=== PATIENT | male | born 1985 | race Caucasian/White ===

== ENCOUNTER 2019-11-05 18:02 | Emergency (ER) | payer SELFPAY ==
[2019-11-05 18:03] VITALS: BP 119/93; PULSE 86; RESP 14; TEMP 36.8; O2SAT 98; BMI 29.8
--- NOTE | 2019-11-05 18:25 | ED.DCSUM_ITS ---
History of Present Illness Chief Complaint: Lower Extremity Injury Informant: Patient Onset: Weeks - 3 Context: Gradual Onset Timing: Continuous Quality of Pain: - - tight/swollen Location: anterior left knee Current Severity: Moderate Maximum Severity: Moderate Worsened by: kneeling Relieved by: draining it at home Associated Symptoms: Negative for: Parasthesia, Weakness, Loss of Funtion Narrative: Patient had a dog bite to the left knee as he was trying to get his dog and another dog to stop a fight, he was seen and put on Augmentin, the infection seemed to clear up very quickly and not recur. 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 He has been doing a lot of this recently, before the incidence of this. He has had a friend drained his bursa twice so far, successfully, but the swelling has recurred each and every time, hence the reason he presents here now. He is not having a lot of pain, but he does admit that the more swollen he gets the titer it feels. He is having no trouble walking. He denies any fevers or systemic symptoms. The puncture wounds from the dog's teeth are pointed out by him, and none of them are over the bursa. There is 1 lesion at the lateral aspect, he states that is from himself putting in a needle and trying to drain it unsuccessfully earlier in the week. Past Medical History - Allergies and Home Meds Allergies/Adverse Reactions: Allergies No Known Allergies Allergy (Verified 11/05/19 18:03) Primary Care Physician: Anthony Varghese MD [STAFF PHYSICIAN] - As Needed Smoking Status: Never smoker Drugs: None Review of Systems General: Denies: Chills, Fever, Sweats Musculoskeletal: Reports: Swelling - See HPI. Prepatellar left only.. Denies: Neck pain Skin: Reports: Wounds - healing Neurological: Denies: Headache, Weakness, Numbness Physical Exam Vital Signs/Narrative: Vital Signs Temp Pulse Resp BP Pulse Ox 11/05/19 18:03 98.2 F 86 14 119/93 H 98 Inital Vital Signs reviewed: Yes - Extremity Exam Left Knee: - - Prepatellar swelling only, very mild blanching erythema which is nontender at the skin level, no excessive warmth. Fluctuant. Healing pinpoint lesion laterally where patient states he stuck himself with a needle. Healing puncture wounds from dog bite proximal to the anterior knee, at the medial and lateral distal thigh. No lymphangitis or cellulitis. Full range of motion at the knee. No knee effusion. General: Well nourished, Well developed Head: Normocephalic, Atraumatic ENT: No Trauma, Moist Mucous Membranes Skin: Normal color - Mild erythema left distal thigh and knee, nontender. See above., No rash, Trauma Neurological: Alert, Oriented x3, Cranial nerves II-XII grossly intact, Normal Strength, Normal Sensation, Normal Gait Psychological: Normal affect, Normal Mood Diagnostic/Tx/Re-eval - Medical Decision Making Discussed with Dr. Anthony Varghese, he agrees that for a noninfected recurrent bursitis as this, injecting Kenalog would be reasonable after draining it, along with some lidocaine. He stressed making sure that it is not infected to the best of my ability, which I certainly agree with. I discussed all this with patient, he understands the benefits and risks, and agrees to proceed with draining the bursa and injecting some Kenalog as long as the fluid does not appear infected. See the procedure note. Since the fluid was bloody, I did send it for a culture and stat Gram stain, which revealed no organisms. Patient was counseled on signs and symptoms of infection, reasons to return, and he was given an Casimiro wrap for compression and advised to avoid kneeling on his knee for the time being and following up with orthopedics as needed or return to the ER for signs/symptoms of infection. He is in agreement with this plan. Procedures Procedure(s): Left prepatellar bursa aspiration and injection --after chlorhexidine prep, the left prepatellar bursa was entered with a 22-gauge needle using sterile method from a lateral approach. A total of 45 cc of grossly bloody thin relatively transparent fluid was aspirated. However, even with changing syringes retirement, in sterile manner, it was still bloody. Subsequently, without withdrawing the needle, by changing syringes in sterile manner, 40 mg of Kenalog and 1 cc mixed with 1 cc of plain 1% lidocaine was injected into the bursa. There were no complications. The patient tolerated well and desired no local anesthesia. Needle insertion site was bandaged after. ED Disposition - Plan for ED Patient: Disposition: Home or Assisted Living Diagnosis: Prepatellar bursitis of left knee Instructions: ED Bursitis Referrals: Anthony Varghese MD [STAFF PHYSICIAN] - As Needed
[2019-11-05] MEDS: Triamcinolone Acetonide 40 MG/ML Vial IU (18:49)
[2019-11-05 19:53] VITALS: TEMP 36.8
== END 2019-11-05 19:53 | disposition home or self-care (01) ==
LOC: ED 19:21
PROVIDERS: Emergency Provider Emergency Medicine
DX: M70.42 Prepatellar bursitis, left knee (principal)
CPT/HCPCS: 20610; 87070; 87075; 87205; 99282

== ENCOUNTER 2020-02-07 19:38 | Emergency (ER) | payer SELFPAY ==
[2020-02-07 19:40] VITALS: BP 152/94; PULSE 64; RESP 18; TEMP 36.6; O2SAT 98; BMI 27.4
--- NOTE | 2020-02-07 21:19 | ED.VIS.GEN ---
History of Present Illness Chief Complaint: Bite Informant: Patient Onset: Today - JPTA Context: Sudden Onset Timing: Continuous Quality: sore Location: lips/face Current Severity: Moderate Maximum Severity: Moderate Worsened by: palpation Relieved by: leaving alone Associated Symptoms: none Narrative: Patient and his significant other state they were walking on the road and saw a dog that was looking friendly, he bent down to pet the dog and it suddenly bit him in the face causing lacerations to his lips. He states the dog did not appear ill but he has no idea if it is a stray or belongs to somebody. He denies any other injury. States his last tetanus was around 5 years ago but is not sure exactly. Never had rabies vaccinations. Past Medical History - Allergies and Home Meds Allergies/Adverse Reactions: Allergies No Known Allergies Allergy (Verified 02/07/20 19:42) Primary Care Physician: Care Physician,No Primary [Primary Care Provider] - Past Medical History: None Lives: Spouse/ Significant Other Smoking Status: Current every day smoker Review of Systems General: Denies: Chills, Fever, Sweats Eyes: Denies: Visual changes - bilaterally, Diplopia Gastrointestinal: Denies: Nausea, Vomiting Musculoskeletal: Denies: Neck pain, Back pain, Extremity Pain Skin: Reports: Wounds. Denies: Rash Neurological: Denies: Headache, Weakness, Numbness Physical Exam Vital Signs/Narrative: Vital Signs Temp Pulse Resp BP Pulse Ox 02/07/20 19:40 97.9 F 64 18 152/94 H 98 Inital Vital Signs reviewed: Yes General: Well nourished, Well developed, No Acute Distress Head: Normocephalic, Atraumatic Eyes: Perrl, EOMI ENT: - - Abrasion to the left side of the distal nose, near where it meets the face, no laceration to repair there. Lacerations present to the mid upper lip vermilion, and the lower lip vermilion just to the right of midline, both cross the taylor border. No foreign material. Minimal oozing of blood. No dental injury or oral mucosal injury. No trismus. No bony jaw or maxilla tenderness. No epistaxis. Neck: Supple, Nontender Respiratory: No distress Skin: Normal color, No rash, Trauma - 2 cm laceration upper lip vermilion, 2 cm laceration lower lip vermilion. Abrasion left midface, see above. Neurological: Alert, Oriented x3, Cranial nerves II-XII grossly intact, Normal Strength, Normal Sensation, Normal Gait Psychological: Normal affect, Normal Mood Diagnostic/Tx/Re-eval - Medical Decision Making Discussed risk of rabies with this patient, given that the dog is either stray or with an unknown manager application development, although the risk of rabies is relatively low with a dog, I would still recommended given the risk of with rabies infection, which we discussed. He understands this risk, and declines a rabies vaccination series. He also declined tetanus update, he thinks he had one about 5 ago. His lacerations were repaired and cleansed thoroughly, they were diagonal across the vermilion border, in thick mustache and hugo hair, care was taken to align the vermilion border, and he was advised to return in 5-6 days for reevaluation and suture removal. He will be placed on Augmentin for infection prophylaxis and the first dose given tonight. Procedures - Lacerations upper lip Length: 2 cm Depth: Sub Q Shape: linear w/ c-curve at superior end Prep: Sterile Conditions, Chlorhexadine Laceration repair: Lidocaine - 3cc, Lidocaine with epi - topically, Local, Skin sutures Number of Sutures/[place]: 4 Suture Information: Simple, 6-0 - prolene lower lip Length: 2 cm Depth: Sub Q Shape: Linear Prep: Sterile Conditions, Chlorhexadine Laceration repair: Lidocaine - 3cc, Lidocaine with epi - topically, Local, Skin sutures Number of Sutures/[place]: 4 Suture Information: Simple, 6-0 - prolene ED Disposition - Plan for ED Patient: Disposition: Home or Assisted Living Diagnosis: Dog bite of face, Laceration of lower lip, Laceration of vermilion border of upper lip Instructions: ED Laceration Facial Sutr Tape, ED BITE Dog Prescriptions: Amox/Clavulanate Tablet [Augmentin Tablet] 875 mg PO Q12H #14 tab Transmission Status: Pending to [facility]/pharmacy #[id number] Referrals: Doctor,Your [STAFF PHYSICIAN] - 5 Days for suture removal (or ER)
[2020-02-07] MEDS: Lidocaine/Epi/Tetracaine 50 ML 1 APPLIC TOPICAL (21:40)
[2020-02-07] MEDS: Ibuprofen 600 MG Tablet PO (21:41)
[2020-02-08] MEDS: Amox/Clavulanate 875 MG Tablet PO (00:22)
== END 2020-02-08 00:24 | disposition home or self-care (01) ==
PROVIDERS: Emergency Provider Emergency Medicine
DX: S01.511A Laceration without foreign body of lip, initial encounter (principal); W54.0XXA Bitten by dog, initial encounter; Y93.89 Activity, other specified; Y92.9 Unspecified place or not applicable; F17.200 Nicotine dependence, unspecified, uncomplicated
CPT/HCPCS: 12013; 99284

== ENCOUNTER 2022-07-17 13:36 | Emergency (ER) | payer SELFPAY ==
[2022-07-17 13:37] VITALS: BP 151/93; PULSE 69; RESP 15; TEMP 36.2; O2SAT 98; BMI 28.3
--- NOTE | 2022-07-17 14:07 | EX.ED.UPPERE ---
HPI History of Present Illness Chief Complaint: Laceration Detail of Chief Complaint: Laceration left index finger Informant: patient Narrative Narrative: Prior toPatient presents with laceration to left index finger sustained in the ER. Patient states that he was cutting something with a razor blade some mandy pieces when he accidentally lacerated his left index finger. Patient is right-hand dominant. Last tetanus shot was 2 years ago. Tetanus Immunization: <5 years PFSH PFSH Home Medications amoxicillin 875 mg-potassium clavulanate 125 mg tablet 875 mg PO Q12H #14 tabs 02/08/20 [Rx Last Taken Unknown] Allergy/AdvReac Type Severity Reaction Status Date / Time No Known Allergies Allergy Verified 07/17/22 13:38 Social History Smoking Status: Current every day smoker tobacco type: cigarettes ROS ROS ED Review of Systems ROS Unobtainable: other Constitutional Constitutional ED: Reports lethargy; Denies chills, fever(s), sweats or weight loss Eyes Eyes: Denies blurry vision, change in vision or diplopia ENT ENT ED: Denies rhinorrhea or sore throat Cardiovascular Cardiovascular: Denies chest pain, orthopnea or racing heartbeat Respiratory/Chest Respiratory/Chest: Denies cough, dyspnea, dyspnea on exertion, orthopnea or sputum Gastrointestinal Gastrointestinal: Denies abdominal pain, diarrhea, nausea or vomiting Genitourinary Genitourinary ED: Denies dysuria, hematuria or urinary frequency Musculoskeletal Musculoskeletal: Denies arthralgias, back pain, myalgias or neck pain Integumentary Reports other Details: Laceration left index finger ; Denies abscess, Abrasions or rash Neurologic Neurologic: Denies headache(s) or weakness Psychiatric Psychiatric: Denies anxiety, depression or suicidal thoughts Endocrine Endocrinology: Denies polydipsia, polyphagia or polyuria Hematologic/Lymphatic Hematologic/Lymphatic: Denies easy bleeding, easy bruising or lymphadenopathy Allergic/Immunologic Allergic/Immunologic ED: Denies mouth swelling, tongue swelling or urticaria EXAM Physical Exam Const Vital Signs: 07/17/22 13:37 Temperature 97.1 F L Temperature Source Temporal Pulse Rate 69 Respiratory Rate 15 Blood Pressure 151/93 H Blood Pressure Mean 112 Pulse Ox 98 Oxygen Delivery Method Room Air Positive well nourished and well developed General Appearance ED: well developed and NAD HEENT Reports TM's clear and moist mucous membranes normocephalic and atraumatic; Negative for trauma or tenderness Tympanic Membrane ED: Yes TM's clear Eyes PERRL and EOMs intact bilaterally General Eye ED: Negative for pale conjunctiva or scleral icterus Neck no lymphadenopathy, supple and no JVD General: Negative for tenderness Chest Wall inspection of chest normal and palpation of chest normal Chest: Negative for tenderness Resp normal respiratory effort and clear to auscultation bilaterally Effort and Inspection: Negative for respiratory distress or pain with movement Auscultation: Negative for rhonchi, wheezes or diminished lung sounds Cardio regular rate, regular rhythm, S1 normal heart sound, S2 normal heart sound and no murmurs Peripheral Pulses: pulses 2+ throughout GI normal to inspection, nondistended, normoactive bowel sounds, soft to palpation, non-tender, non-distended and no masses Back/Spine no CVA tenderness and no thoracic nor lumbar tenderness Extremity normal to inspection Extremity Narrative: Patient has a 3.5 cm laceration over the radial aspect of the index finger on the left. Laceration starts at the proximal base of the proximal phalanx and extends towards the PIP joint. He has normal range of motion flexion extension at the DIP and PIP joints. Neurovascular intact distally. General Extremety ED: Negative for edema General Extremity: Negative for edema Neuro oriented x3, CN's II-XII intact bilaterally, no sensory deficits noted and gait normal Sensorium / Orientation: awake, alert, oriented to person, oriented to place and oriented to time Motor Exam: strength 5/5 throughout and strength abnormal Psych mental status grossly normal Skin no rashes or lesions noted and no wounds MDM MDM MDM Narrative Medical decision making narrative: Discussed treatment options with patient and I felt suturing the wound was most reasonable approach and he was in agreement. Patient had suture repair please see procedure note. Digital block was performed and patient Toller procedure well. Patient advised to follow-up with primary care physician in 10 days for suture removal. He is to return if increasing pain, redness, swelling, purulent drainage, or condition should worsen anyway. Procedures Lacerations Left index finger laceration: Length: 1.38 in Depth: Sub Q Shape: Linear Prep: Sterile Conditions and Shure-Clens Laceration repair: Digital block, Irrigated, Lidocaine, Skin sutures and Wound explored Irrigated (ml): 150 Number of Sutures/[place]: 7 Suture Information: Ethilon, Simple and 5-0 Comment: On evaluation of the wound for flexion extension of the DIP and PIP joints unable to visualize any tendon involvement. He did have sensation distally. Discharge Plan Triage Chief Complaint: Laceration ED Provider: Alirio Tillman Dx/Rx/DC Orders Clinical Impression: Laceration of left index finger Instructions: ED Laceration, Hand: All Closures Prescriptions: No Action amoxicillin-pot clavulanate 875 MG tablet 875 mg PO Q12H Qty: 14 0RF Primary Care Provider: Care Physician,No Primary Referrals: Bruno Hoang MD [Med Staff - Active Staff] - 10 Day for suture removal Care Physician,No Primary [Primary Care Provider] - Disposition Disposition: Home, Self Care
[2022-07-17] MEDS: Lidocaine 2% (20 ml mdv) 20 ML Vial INFILT (14:45)
[2022-07-17 14:54] VITALS: RESP 18
== END 2022-07-17 14:55 | disposition home or self-care (01) ==
PROVIDERS: Emergency Provider Emergency Medicine; Visit Provider Emergency Medicine
DX: S61.211A Laceration without foreign body of left index finger without damage to nail, initial encounter (principal); F17.210 Nicotine dependence, cigarettes, uncomplicated; W26.8XXA Contact with other sharp object(s), not elsewhere classified, initial encounter
CPT/HCPCS: 12001; 99282

== ENCOUNTER 2022-07-29 15:51 | Emergency (ER) | payer SELFPAY ==
[2022-07-29 15:52] VITALS: BP 137/88; PULSE 65; RESP 14; TEMP 36.2; O2SAT 98; BMI 29.5
--- NOTE | 2022-07-29 16:33 | EX.ED.UPPERE ---
HPI History of Present Illness Chief Complaint: Upper Extremity Injury Informant: patient Narrative Narrative: [id number] male presents for wound check left index finger. He sustained laceration to this finger 12 days ago from a razor blade. He is seen in the ED with sutures. 2 days ago he states he removed proximal sutures himself. However he states afterwards he is working excellently hit his finger with a hammer open up the wound distally. No exudative drainage she states little bit more red. No fevers. PFSH PFSH Medical History Laceration Home Medications amoxicillin 875 mg-potassium clavulanate 125 mg tablet 875 mg PO Q12H #14 tabs 02/08/20 [Rx Last Taken Unknown] Allergy/AdvReac Type Severity Reaction Status Date / Time No Known Allergies Allergy Verified 07/17/22 13:38 Social History Smoking Status: Current every day smoker tobacco type: cigarettes ROS ROS ED Constitutional Constitutional ED: Denies chills, fever(s) or sweats Eyes Eyes: Denies change in vision ENT ENT ED: Denies dysphagia or sore throat Cardiovascular Cardiovascular: Denies chest pain, leg edema, palpitations or racing heartbeat Respiratory/Chest Respiratory/Chest: Denies cough, dyspnea or dyspnea on exertion Gastrointestinal Gastrointestinal: Denies abdominal pain, diarrhea, nausea or vomiting Genitourinary Genitourinary ED: Denies dysuria, hematuria or urinary frequency Musculoskeletal Musculoskeletal: Denies back pain, extremity pain or neck pain Integumentary Reports wounds; Denies rash Neurologic Neurologic: Denies headache(s), paresthesias or weakness EXAM Physical Exam Const Vital Signs: 07/29/22 15:52 Temperature 97.1 F L Temperature Source Temporal Pulse Rate 65 Respiratory Rate 14 Blood Pressure 137/88 H Blood Pressure Mean 104 Pulse Ox 98 Oxygen Delivery Method Room Air Positive well nourished and well developed General Appearance ED: well developed and NAD HEENT Reports moist mucous membranes normocephalic and atraumatic Eyes PERRL, EOMs intact bilaterally and conjunctivae normal General Eye ED: Yes normal appearance of both eyes Neck no lymphadenopathy and supple General: Negative for tenderness Chest Wall Chest: Negative for tenderness Resp normal respiratory effort and normal air movement Effort and Inspection: symmetric chest movement; Negative for respiratory distress Cardio regular rate, regular rhythm and no murmurs Peripheral Pulses: pulses 2+ throughout GI normal to inspection, nondistended, normoactive bowel sounds and non-tender Palpation: Negative for guarding or rebound tenderness present Back/Spine no CVA tenderness and no thoracic nor lumbar tenderness Extremity normal to inspection General Extremety ED: Negative for edema or tenderness General Extremity: Negative for edema Neuro oriented x3 and no sensory deficits noted Sensorium / Orientation: awake and alert Skin Skin Narrative: Left index finger: There is a 4 cm wound radial aspect proximal phalanx extends just to the PIP joint dorsally. There is 3 sutures remaining at the center, proximal as are removed, distal is not currently present. Slight dehiscence distally. No exudates or drainage. No bony tenderness. MDM MDM MDM Narrative Medical decision making narrative: Patient present for wound evaluation. Differentials wound dehiscence, no clinical signs of infection at this time. Discussed due to blunt injury with a hammer x-rays however he declines at this time therefore fracture is in the differential. Discussed at this time with the patient and to allow for secondary healing as suturing will increase infection risks. He understands this. Wound was cleansed and dressed by nursing wound care discussed. He was placed in aluminum foam splint to help with immobilization and healing. He is given follow-up as an outpatient. Return precaution discussed. All questions were answered. Discharge Plan Triage Chief Complaint: Upper Extremity Injury ED Provider: Óscar Cho Dx/Rx/DC Orders Clinical Impression: Dehiscence of wound, Visit for wound check Instructions: Wound Dehiscence, ED Wound Care Prescriptions: No Action amoxicillin-pot clavulanate 875 MG tablet 875 mg PO Q12H Qty: 14 0RF Primary Care Provider: Care Physician,No Primary Referrals: Linh Luciano [Non-Staff] - 1-2 Weeks Care Physician,No Primary [Primary Care Provider] - Activity Restrictions/Additional Instructions: Wound care as discussed. Continue with the splint decrease mobilizations allow for healing. Disposition Disposition: Home, Self Care
== END 2022-07-29 16:40 | disposition home or self-care (01) ==
PROVIDERS: Emergency Provider Emergency Medicine; Visit Provider Emergency Medicine
DX: T81.33XA Disruption of traumatic injury wound repair, initial encounter (principal); W26.8XXA Contact with other sharp object(s), not elsewhere classified, initial encounter; F17.210 Nicotine dependence, cigarettes, uncomplicated
CPT/HCPCS: 99283